=== PATIENT | male | born 1940 | race Caucasian/White ===

== ENCOUNTER 2020-01-01 14:54 | Outpatient (CLI) | payer MEDICARE, OTHER, SELFPAY ==
--- NOTE | ~2020-01-01 | US_ITS ---
EXAMINATION: US arterial ankle brachial ind DATE: 01/01/2020 15:26 INDICATION: Traumatic changes of the lower extremities. Hypercholesterolemia, treated. Hypertension. TECHNIQUE: Segmental pressures and plethysmographic and Doppler waveforms of the brachial and lower e xtremity arteries were obtained. COMPARISON: 02/16/2019 FINDINGS: Right and left brachial artery pressures of 151 mm Hg and 159 mm Hg, respectively, are concordant (no rmal difference <= 30 mmHg). The right ankle-brachial index (BRANDON) is 0.95 (normal >= 0.9-1.0). The right great toe-brachial index (TBI) is 0.80 (normal >= 0.65). Arterial Doppler waveforms are biphasic. The left BRANDON is 0.91. The left TBI is 0.80. Arterial Doppler waveforms are biphasic. IMPRESSION: Normal BRANDON and TBI bilaterally Reviewed, dictated and finalized at [facility]. Reviewed, dictated and finalized at [facility].
== END 2020-01-01 14:55 | disposition home or self-care (01) ==
PROVIDERS: PCP Family Medicine Adolescent Medicine; Visit Provider Nurse Practitioner Adult Health
DX: I70.211 Atherosclerosis of native arteries of extremities with intermittent claudication, right leg (principal)
CPT/HCPCS: 93922

== ENCOUNTER 2021-01-25 13:00 | Outpatient (CLI) | payer MEDICARE, OTHER, SELFPAY ==
--- NOTE | ~2021-01-25 | XR_ITS ---
EXAMINATION: XR barium swallow modified DATE: 01/25/2021 13:57 INDICATION: Dysphagia TECHNIQUE: The patient was given barium-containing material of multiple consistencies to swallow by t sanjay speech pathologist while I performed fluoroscopy. Dose-area product was 3.902 Gy-cm2. 2.7 minutes fluoroscopy time FINDINGS: Oral Stage: Within functional limits Pharyngeal Phase: Reduced laryngeal elevation, reduced tongue base retraction, vallecular residue. Diminished epiglottis motion Laryngeal penetration but no aspiration Cervical/Esophageal Stage: Within functional limits IMPRESSION: Modified esophagram findings as above. Please refer to the speech therapy report for spec ific recommendations. Reviewed, dictated and finalized at [facility]. Reviewed, dictated and finalized at [facility]. IMPRESSION: Modified esophagram findings as above. Please refer to the speech t herapy report for specific recommendations.
--- NOTE | 2021-01-26 10:35 | STOPEVAL ---
MODIFIED BARIUM SWALLOW EVALUATION: (Completed 01/25/21) Thank you for referring Vaughn Gutierrez to [facility] Attending Provider: Ang Souza MD Modified Barium Swallow Evaluation Recent Swallowing History Reports Dysphagia Yes: food gets caught in back of mouth and throat Onset of Dysphagia couple of weeks- suddenly History of Dysphagia No Other Factors Impacting Dysphagia None History of Pneumonia No Reported Difficult Consistencies Solids Intake Method Prior to Swallow Oral Evaluation Diet Prior to Swallow Evaluation Regular, Level 7 Liquid Consistency Prior to Swallow Thin (0) Evaluation Consistency Thin Uncontrolled 2 Method of Presentation Straw Oral Preparatory Symptoms Within Functional Limits Oral Phase Symptoms Within Functional Limits Pharyngeal Phase Symptoms Laryngeal Penetration,Reduced Laryngeal Elevation,Reduced Lingual Pressure,Residue in Valleculae Severity of Vallecular Residue Mild - 5-25 % Epiglottic Ligament Visable Pharyngeal Phase Comments Laryngeal penetration occurred after the swallow related to vallecular/epiglottic residual . Appearance of epiglottis was potentially altered; reduced epiglottic inversion was exhibited. Laryngeal penetration occurred (during & after); it appeared pt was able to eject contents with repeated dry swallows but due to pt's size causing a slightly altered view, microaspiration could not be ruled out. Cervical/Esophageal Symptoms Within Functional Limits Thin Uncontrolled 1 Method of Presentation Cup Oral Preparatory Symptoms Within Functional Limits Oral Phase Symptoms Within Functional Limits Pharyngeal Phase Symptoms Laryngeal Penetration,Reduced Laryngeal Elevation,Reduced Lingual Pressure,Residue in Valleculae Severity of Vallecular Residue Mild - 5-25 % Epiglottic Ligament Visable Pharyngeal Phase Comments Laryngeal penetration occurred after the swallow related to vallecular/epiglottic residual . Appearance of epiglottis was potentially altered; reduced
== END 2021-01-25 13:01 | disposition home or self-care (01) ==
PROVIDERS: PCP Family Medicine Adolescent Medicine; Visit Provider Family Medicine Adolescent Medicine
DX: R13.10 Dysphagia, unspecified (principal)
CPT/HCPCS: 92611

== ENCOUNTER 2021-05-03 14:58 | Outpatient (CLI) | payer MEDICARE, OTHER, SELFPAY ==
[2021-05-03 15:22] LABS: Basophils Absolute Auto 0.1 K/mm3 (0.0-0.1); Basophils Percent Auto 0.5 % (0.2-1.2); Eosinophils Absolute Auto 0.3 K/mm3 (0-0.3); Eosinophils Percent Auto 2.9 % (0-4.4); Hematocrit 38.8 % (42.0-52.0); Hemoglobin 11.9 g/dL (14.0-18.0); Immature Granulocyte Absolute 0.02 K/mm3 (0.00-0.031); Immature Granulocyte Percent A 0.2 % (0-0.5); Lymphocytes Absolute Auto 2.44 K/mm3 (0.9-3.2); Mean Corpuscular HGB Conc 30.7 g/dl (32-36); Mean Corpuscular Hemoglobin 27.4 pg (26-34); Mean Corpuscular Volume 89.2 fl (80-100); Mean Platelet Volume 9.9 fl (7.4-10.4); Monocytes Absolute Auto 0.7 K/mm3 (0.1-0.6); Monocytes Percent Auto 7.1 % (2.6-8.5); Neutrophils Absolute Auto 6.3 K/mm3 (1.3-6.7); Neutrophils Percent Auto 64.3 % (45.5-73.1); Platelet Count Result 312 k/mm3 (150-375); Red Blood Count 4.35 M/mm3 (4.6-6.20); White Blood Count 9.8 K/mm3 (4.5-10.0)
[2021-05-03 16:10] LABS: Alanine Aminotransferase 21 U/L (4-50); Albumin Level 4.3 g/dL (3.5-5.1); Alkaline Phosphatase 53 U/L (38-126); Anion Gap 8 mmol/L (8-16); Aspartate Amino Transferase 45 U/L (17-59); Bilirubin,Total 0.4 mg/dL (0.2-1.3); Blood Urea Nitrogen 33 mg/dL (9-20); Calcium 9.3 mg/dL (8.4-10.2); Carbon Dioxide 28 mmol/L (22-30); Chloride 100 mmol/L (98-107); Estimated Glomerular Filt Rate > 60; Glucose 184 mg/dL (65-110); Potassium 3.8 mmol/L (3.4-5.0); Sodium 136 mmol/L (137-145)
== END 2021-05-03 14:59 | disposition home or self-care (01) ==
PROVIDERS: PCP Family Medicine Adolescent Medicine; Visit Provider Internal Medicine Hematology & Oncology
DX: C09.9 Malignant neoplasm of tonsil, unspecified (principal)
CPT/HCPCS: 36415; 80053; 85025

== ENCOUNTER 2021-06-07 08:41 | Outpatient (CLI) | payer MEDICARE, OTHER, SELFPAY ==
[2021-06-07 09:14] LABS: Partial Thromboplastin Time 32.4 SECONDS (22.3-36.8); Prothrombin Time 13.1 Seconds (11.1-14.7)
== END 2021-06-07 08:42 | disposition home or self-care (01) ==
LOC: ANHSURGERY 08:43
PROVIDERS: PCP Family Medicine Adolescent Medicine; Visit Provider Surgery
DX: Z01.812 Encounter for preprocedural laboratory examination (principal); C09.9 Malignant neoplasm of tonsil, unspecified; Z51.81 Encounter for therapeutic drug level monitoring; Z79.899 Other long term (current) drug therapy
CPT/HCPCS: 36415; 85610; 85730

== ENCOUNTER 2021-06-08 08:45 | Outpatient (RCR) | payer MEDICARE, OTHER, SELFPAY ==
--- NOTE | 2021-03-30 11:07 | PDRADONCCN ---
Recommendations I agree with definitive chemo-XRT. He should move forward to tooth extractions and feeing tube placement, GEORGE. He should also see Dr. Mckinney to discuss chemotherapy. I reviewed that he will need 7 weeks of daily therapy. I also reviewed the EXPECTED severe acute and chronic side effects of skin reaction, mucositis, trouble swallowing, sore throat, dry mouth, fibrosis, hypothyroidism, chronic dry mouth, bone damage, and damage to nerves controlling the arm. He and his daughter voiced understanding. I will see them back for simulation once extractions have healed. Time spent: 35 minutes. 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 He presents today for discussion of definitive management with chemo-XRT. 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 He presents today for discussion of definitive management with chemo-XRT. - History of Present Illness Patient has a multi-month history of progressive dysphagia. With this, he has lost 65-100 lb. He finally received a workup which revealed extensive left tonsil mass. Biopsy proved p16+ squamous cell carcinoma. Staging PET/CT has revealed hypermetabolism in the mass and bilateral neck nodes. There is no evidence of distantly metastatic disease. He has seen Dr. Ivan at [facility], who has recommend chemo-XRT definitively. There are plans being made for a feeding tube and tooth extractions. He is to see Dr. Mckinney on 04/11 for discussion of chemotherapy. He has no history of XRT. The patient is accompanied by his daughter today. - Social History Social History Alcohol Use: Alcohol intake: current Others: Spiritual care concerns: No Smoking Status: Smoking status: Heavy tobacco smoker Tobacco type: cigarettes Second hand tobacco smoke exposure: No Smoking end date: 04/22/01 Smoking Pack-years: Smoking packs per day: 1 Smoking cigarettes per day: 20.0 Years smoked: 40 Smoking pack-years: 40.00 - Allergies Allergies Allergy/AdvReac Type Severity Reaction Status Date / Time carvedilol Allergy Unknown Verified 09/05/17 09:24 meperidine Allergy Unknown Verified 09/05/17 09:24 MEPERIDINE HCL Allergy Severe ALTERED Uncoded 08/29/17 11:32 MENTAL STATUS Review of Systems - Review of Systems all systems reviewed & are unremarkable except as noted in History Exam - General A tired, obese gentleman in NAD. - Exam HEENT: EOMI, PERRLA, mucous membranes moist and pink, other (Firm mass of left tonsil) Neck: other (one firm lymph nodes in level IIB and III bilaterally.) Lungs: clear to auscultation, normal air movement, decrease breath sounds Heart: no murmurs, gallops, or rubs, regular rhythm, regular rate Abdomen: abdomen soft, non-distended Extremities: normal pulses Integumentary: no abnormalities Neurological: other (Shuffling gait.) Psychological: mental status NL, mood NL
--- NOTE | 2021-03-31 07:30 | PC.NURSE ---
Consult note faxed to Dr Souza office.
--- NOTE | 2021-04-27 10:59 | WPDRADIATPRO ---
Radiation Procedure Note - Date/Time Date/Time: 04/27/21 10:59 - Summary Summary: PURPOSE: The patient is undergoing a virtual CT simulation for external beam radiation treatment planning. TREATMENT SITE(S): Left tonsil and bilateral necks NUMBER OF AREAS OR CAMARENA: 1 treatment area(s) EQUIPMENT USED: Dedicated CT sim IMMOBILIZATION: Aquaplast mask CONTRAST MEDIA: None EXTERNAL/INTERNAL MARKERS: NOne TATTOOS: Ca on mask NUMBER OF TREATMENT PORTS: Arc-based IMRT BLOCKING: IMRT QA ISODOSE PLAN: An isodose plan will be performed to establish the dose distribution within the treatment volume SCHEDULING Prior to delivering the first radiation fraction, a confirmatory simulation will be performed on the linear accelerator to verify the isocenter location and block design IMAGING QA: Utilizing the integrated kV cone-beam CT on the treatment machine, CT images through the treatment volume will be acquired prior to fraction to ensure precise patient positioning, thus allowing treatment of the tumor with narrow margins
--- NOTE | 2021-04-27 11:03 | WPDRADIATNAR ---
Radiation Narrative Note - Date/Time Date/Time: 04/27/21 11:03 - Narrative Narrative: SPECIAL TREATMENT MANAGEMENT MEDICAL NECESSITY: A special treatment management code (23738) has been charged for this patient due to the additional time and effort required of myself and the department staff while performing and/or managing a special treatment situation. This procedure has been charged only once during the entire course of treatment. SPECIAL TREATMENT PROCEDURE: The administration of concurrent chemotherapy (Cisplatin) may result in greater side effects during and after the patient?s planned course of radiation therapy. Radiation can react adversely with the effects of chemotherapy and create medical problems of a much greater severity than would be seen in a patient receiving radiation alone. This will considerably increase the complexity of the current treatment plan and on-going management of this patient.
--- NOTE | 2021-04-27 11:04 | WPDONCRADTXP ---
Radiation Treatment Plan - Date/Time Date/Time: 04/27/21 11:04 - Summary Summary: TREATMENT INTENT: Cure SPECIAL TEST(S) INTERPRETED FOR TUMOR DELINEATION: PET/CT CHEMOTHERAPY CONSIDERATIONS: Concurrent chemo PROTOCOL ENROLLMENT: None TREATMENT SITE(S): Left tonsil and bilateral necks NUMBER OF AREAS OR CAMARENA: 1 treatment area(s) NUMBER OF TREATMENT PORTS: Arc-based IMRT IMMOBILIZATION: Aquaplast mask TREATMENT DEVICES: IMRT QA TREATMENT MODALITY: EBRT PLANNED DOSE: See constraint form (70 Gy in 2 Gy/fx) FRACTIONATION: Qday TECHNIQUE CONTEMPLATED: IMRT/IGRT MEDICAL NECESSITY FOR IMRT TREATMENT PLANNING: The target volume is concave and critical normal tissues (spinal cord, parotid, esophagus) are within that concavity. IMRT is the only treatment modality that can achieve this, as opposed to conventional 3D-treatment planning. MEDICAL NECESSITY FOR IGRT TREATMENT PLANNING: There is inherent patient setup variation that could result in geometric miss of the target volume and/or excessive dose delivery to the adjacent normal structures. IGRT is the only treatment modality that can correct for daily variances in target volume location, further improving the therapeutic ratio over IMRT alone. PAIN SCORE: 0/10 Intervention planned: N/A
[2021-04-27 11:13] VITALS: BP 118/65; PULSE 111; RESP 21; TEMP 37.2; O2SAT 100
--- NOTE | 2021-05-11 09:04 | WPDRADIATPRO ---
Radiation Procedure Note - Date/Time Date/Time: 05/11/21 09:04 - Diagnosis Diagnosis: Squamous cell carcinoma of the tonsil - Summary Summary: ISOCENTER VERIFICATION SIMULATION PURPOSE: The patient initially underwent virtual CT simulation. A simple simulation was performed on the [employer] linear accelerator utilizing the integrated kV CT for isocenter verification prior to treatment delivery of the first fraction. EQUIPMENT USED: Simulation was performed on the linear accelerator. PROCEDURE DETAILS: This simulation was performed prior to the first radiation fraction to the tonsil and bilateral necks. The patient was placed on the treatment couch with his head immobilized using a custom fabricated aquaplast mask in treatment position and aligned to the 3-point setup zhong. An kV CT was acquired through the treatment area. The kV CT images were fused and aligned to the treatment planning CT image set. I reviewed the CT alignment images and made any necessary adjustments. Couch shifts were calculated in order to bring the patient into precise alignment prior to treatment delivery. ASSESSMENT: The isocenter alignment process was successful. ORDERS: Proceed with treatment as planned.
[2021-05-11 09:16] VITALS: BP 147/76; PULSE 112; RESP 20; TEMP 36.2; O2SAT 100
--- NOTE | 2021-05-11 09:31 | WPDRADONCOTV ---
Assessment and Plan - Additional Plan Treatment plan reviewed. Moving forward with radiation while systemic therapy is being finalized because of extensive nature of disease. Images checked. Side effects reviewed, including the possibility of early tumoral edema. Will send script for prednisone dose pack in case he begins to notice swelling. Continue with therapy, otherwise, as planned. On Treatment Visit - Date/Time of Treatment Date/Time: 05/11/21 09:31 Identifying data: 80 y/o male with locally advanced tonsil cancer Site: Left tonsil and bilateral necks Dose: 200 cGy of planned 7000 cGy Fraction: History: Tolerated treatment well today. Cetuximab authorization obtained and first treatment being scheduled. H&P - Exam - General Unchanged. Mass still evident. - Vital Signs Vital Signs - 24 hr 05/11/21 09:16 Temperature 36.2 C L Pulse Rate 112 H Respiratory Rate 20 Blood Pressure 147/76 H Pulse Oximetry 100
[2021-05-18 09:16] VITALS: BP 137/62; PULSE 104; RESP 20; TEMP 36.4; O2SAT 100
--- NOTE | 2021-05-18 09:29 | WPDRADONCOTV ---
Assessment and Plan - Additional Plan Tolerating treatment well. Images checked. Encouraged PO intake with tube feed supplements. Continue with therapy as planned. On Treatment Visit - Date/Time of Treatment Date/Time: 05/18/21 09:29 Identifying data: 80 y/o male with locally advanced tonsil cancer Site: Left tonsil and bilateral necks Dose: 200 cGy of planned 7000 cGy Fraction: History: Tolerating treatment well. Mass seems softer. No pain. Eating well. Taking supplements through feeding tube. Systemic therapy starts this week. H&P - Exam - General Appears well. Tonsil mass is softer but unchanged in size. OP clear. - Vital Signs Vital Signs - 24 hr 05/18/21 09:16 Temperature 36.4 C Pulse Rate 104 H Respiratory Rate 20 Blood Pressure 137/62 Pulse Oximetry 100
[2021-06-01 09:27] VITALS: BP 120/56; PULSE 96; RESP 20; TEMP 36.6; O2SAT 100
--- NOTE | 2021-06-01 09:43 | WPDRADONCOTV ---
Assessment and Plan - Additional Plan Tolerating treatment well. Images checked. Encouraged PO intake with tube feed supplements. Continue with therapy as planned. On Treatment Visit - Date/Time of Treatment Date/Time: 06/01/21 09:43 Identifying data: 80 y/o male with locally advanced tonsil cancer Site: Left tonsil and bilateral necks Dose: 2600 cGy of planned 7000 cGy Fraction: 13 of 35 History: Tolerating treatment well. Mass seems softer. No pain. Eating liquids well (boost, ensure). Taking supplements through feeding tube. No issues thus far with erbitux. H&P - Exam - General Appears well. Mass is definately smaller. No erythema on neck yet. Mouth with dry mucus membranes. - Vital Signs Vital Signs - 24 hr 06/01/21 09:27 Temperature 36.6 C Pulse Rate 96 Respiratory Rate 20 Blood Pressure 120/56 L Pulse Oximetry 100
[2021-06-08 08:50] VITALS: BP 116/52; PULSE 112; RESP 20; TEMP 36.6; O2SAT 100
--- NOTE | 2021-06-08 09:18 | WPDRADONCOTV ---
Assessment and Plan - Additional Plan Tolerating treatment well. Images checked. Start Mucinex, MM, biotene. Encouraged PO intake with tube feed supplements. Continue with therapy as planned. On Treatment Visit - Date/Time of Treatment Date/Time: 06/08/21 09:18 Identifying data: 80 y/o male with locally advanced tonsil cancer Site: Left tonsil and bilateral necks Dose: 3600 cGy of planned 7000 cGy Fraction: History: Tolerating treatment well. Mass seems softer and smaller to patient. No pain, except some mouth burning with eating. +thick secretions. No sense of taste or smell. Taking supplements through feeding tube. No issues thus far with erbitux. H&P - Exam - General Mouth with mucositis. Mass has substantially decreased in size. No external skin reaction. - Vital Signs Vital Signs - 24 hr 06/08/21 08:50 Temperature 36.6 C Pulse Rate 112 H Respiratory Rate 20 Blood Pressure 116/52 L Pulse Oximetry 100
== END 2021-06-12 09:05 ==
LOC: AMCRADONC 08:45
PROVIDERS: PCP Family Medicine Adolescent Medicine; Visit Provider Radiology Radiation Oncology
DX: Z51.0 Encounter for antineoplastic radiation therapy (principal); C09.9 Malignant neoplasm of tonsil, unspecified; R59.0 Localized enlarged lymph nodes; R13.10 Dysphagia, unspecified; R26.89 Other abnormalities of gait and mobility; Z87.891 Personal history of nicotine dependence
CPT/HCPCS: 36415; 77280; 77290; 77300; 77301; 77334; 77336; 77338; 77386; 77470; 80053; 83735; 85025; 96375; 96413; 96415; 99212; A9270; G0463; J1200; J1720; J9055